=== PATIENT | male | born 1960 | race Two or more races ===

== ENCOUNTER 2023-10-29 05:24 | Day surgery (SDC) | payer OTHER ==
[~2023-10-29 05:24] MED LIST: AMLODIPINE-OLM1 EAC2; BUPROPION XL450 MG; BUSPIRONE HCL7.5 MG; PLAVIX75 MG; SPRYCEL100 MG; ZESTRIL5 MG
[2023-10-29] MEDS ORDERED: HEMOSTATIC MATRIX 1 KIT KIT TOP ONE ×2 (06:52→07:45)
[2023-10-29] MEDS ORDERED: DIBUCAINE 30 GM TUBE ONE (06:52)
[2023-10-29] MEDS ORDERED: POVIDONE-IODINE 118 ML BOTT TOP ONE ×2 (06:52→08:00)
[2023-10-29] MEDS ORDERED: LIDOCAINE HCL 1%/EPINEPHRINE 20ML VIAL IJ ONE ×2 (06:52→07:45)
[2023-10-29] MEDS ORDERED: CEFTRIAXONE SODIUM 2,000 MG VIAL ONE (06:53)
[2023-10-29] MEDS ORDERED: METRONIDAZOLE/SODIUM CHLORIDE 500 MG/100 ML PIGGYBACK IV ONE ×2 (06:54→07:45)
[2023-10-29] MEDS ORDERED: BUPIVACAINE HCL/MPF 0.5% 30ML VIAL ONE (06:59)
[2023-10-29] MEDS ORDERED: CEFTRIAXONE SODIUM 2,000 MG VIAL IV ONE (07:45)
[2023-10-29] MEDS ORDERED: PERCOCET 5-3251 EACH PO (07:45)
[2023-10-29] MEDS ORDERED: RECTICARE30 GM TOP (07:45)
[2023-10-29] MEDS ORDERED: DIBUCAINE 30 GM TUBE RECTAL ONE (08:00)
[2023-10-29] MEDS ORDERED: BUPIVACAINE HCL 30 ML VIAL IJ ONE (08:00)
[2023-10-29] MEDS ORDERED: TAMSULOSIN HCL 0.4 MG CAP PO ONE (13:14)
== END 2023-10-29 14:00 | disposition home or self-care (01) ==
LOC: CIR.AMB 05:24
PROVIDERS: ATTEND Surgery
DX: K60.1 Chronic anal fissure (principal); K62.4 Stenosis of anus and rectum; K64.5 Perianal venous thrombosis; R19.5 Other fecal abnormalities; K59.01 Slow transit constipation